=== PATIENT | female | born 1995 | race Two or more races ===

== ENCOUNTER → 2021-11-27 | Emergency (ER) | payer SELFPAY ==
[~2021-11-27] VITALS: Ht 162.6 cm; Wt 71.0 kg
[~2021-11-27] MED LIST: AZIT250T12 MT
[2021-11-27 13:21] VITALS: BP 112/85
== END | disposition home or self-care (01) ==
LOC: ER 10:11
DX: J02.9 Acute pharyngitis, unspecified (principal); Z20.822 Contact with and (suspected) exposure to COVID-19; Z91.09 Other allergy status, other than to drugs and biological substances; Z88.0 Allergy status to penicillin
CPT/HCPCS: 87426; 99283